=== PATIENT | female | born 1940 ===

== ENCOUNTER 2017-06-11 06:53 | Emergency (ER) | payer MEDICARE, OTHER ==
[~2017-06-11] VITALS: Ht 162.6 cm; Wt 68.2 kg
[2017-06-11 06:59] VITALS: BP 142/74; PULSE 78; RESP 10; O2SAT 94
--- NOTE | 2017-06-11 07:10 | ED.REPORT ---
HPI-Eye Problem Date of Service Jun 11, 2017 ED Provider: Sarbjit Duran MD The pt is a 76 y/o female w/ a hx of SVT presenting to the ED via EMS due to R eye pain. She reports waking up w/ the pain and R eyelid swelling, and denies any acute injury to the eye. The pt experiences pain w/ eye movement. Denies blurry vision, fevers, or nasal discharge. 50 mcg of Fentanyl was given by EMS. Nursing Notes Stated Complaint: EYE PAIN Chief Complaint: R eye pain Nursing Notes Reviewed: Yes Allergies: Coded Allergies: crab (Verified Allergy, Severe, anaphylaxis, 06/11/17) Scheduled Clindamycin (Clindamycin) 300 Mg Capsule 300 MG PO TID General Time Seen by MD: 07:08 Chief Complaint Other (R eye pain ) Hx Obtained From: Patient Arrived By: Ambulance Sudden in Onset?: Yes Onset Occurred: Just prior to arrival Symptom Duration: Since onset Recent Healthcare: No recent doctor visit, No recent hospitalization Similar Sx Previous: No Past Medical History Past Medical History SVT Past Surgical History None reported Smoking History Unknown if Ever Smoker Social History Other Social History: Good social support, Ambulatory Status Independent Review of Systems R eyelid swelling; R eye pain w/ movement; Denies nasal discharge; Constitutional: Denies: Fever Eyes: Denies: Blurred bilateral Complete sys rev & neg: except as marked. Physical Exam Initial Vital Signs Vital Signs (First) Date Time Temp Pulse Resp B/P Pulse Ox O2 Delivery O2 Flow Rate FiO2 06/11/17 06:59 36.4 78 10 142/74 94 Room Air Initial VS: Reviewed General / Const: Well-developed, Well-nourished ENT: Mucous membranes moist, Conjunctiva normal, No scleral icterus Neck: Supple, Non-tender, Full range of motion Respiratory: Breath sounds normal, Clear to auscultation, No respiratory distress Cardiovascular: Regular rate & rhythm, Heart sounds normal, Intact distal pulses Extremities: Vascular intact, Neuro intact, No swelling, No tenderness Neurologic: Alert, Oriented, Nonfocal Head / Eyes: Normocephalic R eyelid swelling; No proptosis; Interpretation & Diagnostics PROCEDURE: CT ORBITS WITH CONTRAST IMPRESSION: 1. Soft tissue swelling consistent with cellulitis over the right orbital area. No post septal edema changes. No intracranial abnormality is seen. 2. Prominence of the inferior aspect of the region or of the right lacrimal gland suggesting some inflammation of it. 3. Small amount of fluid versus mucosal thickening in the dependent portion of the right maxillary sinus. Dictated by: Jem Ayala M.D. on 06/11/2017 at 8:31 results called to ER clinician. Approved by: Jem Ayala M.D. on 06/11/2017 at 8:41 Lab Results Interpretation Result Diagram: 06/11/17 0711 06/11/17 0711 Test 06/11/17 07:11 White Blood Count 5.5th/mm3 (3.8-10.1) Red Blood Count 3.97mil/mm3 (3.90-5.20) Hemoglobin 11.5g/dL (12.0-15.6) Hematocrit 36.2% (35.0-46.0) Mean Corpuscular Volume 91.2fL (81-100) Mean Corpuscular Hemoglobin 29.0pg (27.0-35.0) Mean Corpuscular Hemoglobin Concent 31.8% (32.0-37.0) Red Cell Distribution Width 14.0% (12.3-15.4) Platelet Count 220bil/L (150-400) Neutrophils (%) (Auto) 42.9% (40-74) Lymphocytes (%) (Auto) 44.3% (14-46) Monocytes (%) (Auto) 7.6% (4-12) Eosinophils (%) (Auto) 4.5% (0-5) Basophils (%) (Auto) 0.5% (0-3) Hold Purple Top Tube Received (Received) Hold Blue Top Tube Received (Received) Sodium Level 147mEq/L (134-144) Potassium Level 4.5mEq/L (3.5-5.2) Chloride Level 110mEq/L (97-108) Carbon Dioxide Level 26mmol/L (18-29) Blood Urea Nitrogen 18mg/dL (8-27) Creatinine 0.85mg/dL (0.57-1.00) Estimat Glomerular Filtration Rate 93mL/min (>59) Glucose Level 89mg/dL (60-99) Calcium Level 8.7mg/dL (8.5-10.1) Total Bilirubin 0.2mg/dL (0.0-1.2) Aspartate Amino Transf (AST/SGOT) 23U/L (0-50) Alanine Aminotransferase (ALT/SGPT) 14U/L (0-32) Alkaline Phosphatase 66U/L (25-165) Total Protein 6.6g/dL (6.4-8.4) Albumin 3.9g/dL (3.4-5.0) Hold Hadley Top Tube Received (Received) Re-Eval/Medical Decision Med Decision/Clinical Course 76-year-old female with right eyelid swelling since this morning. CT of the orbit shows no evidence of orbital cellulitis. She appears to have a preseptal cellulitis. There is no evidence of corneal abrasion on fluorescein and extraocular movements are intact. She was given 1 dose of IV clindamycin and treated with oral clindamycin with plans to follow up with primary doctor in 1-2 days for reevaluation. Return precautions given. Source of Hx: Old records Re-Evaluation/Progress : Time of Eval: 10:03 Re-Evaluation/Progress Note: Pt rechecked. Informed pt of plan for treatment. Pt understands and agrees with plan for treatment. F/U instructions and RTER warnings given. All questions addressed. Counseled Regarding: Diagnosis, Lab results, Need for follow-up, When/why to return to ED Discharge & Departure Primary Impression: Preseptal cellulitis of right eye Disposition: Home Discharge Condition All VS Reviewed: Yes Condition: Stable Additional Instructions: Thank for you entrusting us with your care today. You were diagnosed with preseptal cellulitis of the right eye. Please take the antibiotics as counseled and follow up with your primary care providers in 1-2 days for a recheck. Please return to the emergency department if you develop any worsening redness, swelling, eye pain, pain with eye movement, inability to close your eye, double vision, visual loss, fevers, nausea, vomiting, no improvement in 48 hours, or any new or worsening symptoms. I hope you feel better soon. Referrals: Jennifer Dawsonibrishabh Attestation Portions of this note were transcribed by Zaheer Pandya. I, Dr. Duran personally performed the history, physical exam and medical decision-making; I reviewed and confirmed the accuracy of the information in the transcribed note. copies to: Jennifer Dawson Ben M MD Jun 11, 2017 07:10 Zaheer Pandya Jun 11, 2017 07:27
[2017-06-11] MEDS ORDERED: Tetracaine 0.5% 4 mL Ophthalmic Solution ONE (07:15)
[2017-06-11] MEDS ORDERED: Fluorescein 0.6 mg Ophthalmic Strip ONE (07:15)
[2017-06-11] MEDS ORDERED: oxyCODONE-Acetamin 10-325 mg Tablet PO ONE (07:30)
[2017-06-11 07:35] LABS: BASOPHILS % (AUTO) 0.5 % (0-3); EOSINOPHILS % (AUTO) 4.5 % (0-5); MONOCYTES % (AUTO) 7.6 % (4-12); Mean Corpuscular Volume 91.2 fL (81-100); NEUTROPHILS % (AUTO) 42.9 % (40-74); Platelet Count 220 bil/L (150-400)
--- NOTE | 2017-06-11 08:42 | DRSVH ---
PROCEDURE: CT ORBITS WITH CONTRAST ([id number]) INDICATIONS: r/o R orbital cellulitis TECHNIQUE: After the administration of intravenous contrast, 3.0 mm axial images acquired through the orbits, wi th coronal reformatting. For radiation dose reduction, the following was used: automated exposure c ontrol. COMPARISON: None. FINDINGS: Image quality: Excellent. Orbits: Globes are symmetrical. The optic nerves are normal in size and enhancement. No retrobulba r masses or fat abnormalities. The extra-ocular muscles are normal and symmetrical in appearance. O ptic chiasm is normal. Periorbital soft tissues are thickened over the right eye but no post septal edema is seen. The right lacrimal gland is slightly prominent in size and enhancement inferiorly comp ared to the left. Intracranial: The pituitary gland is normal, without sellar or suprasellar masses. Visualized cereb ral hemispheres, brainstem, and spinal cord appear normal. Bones and sinuses: Visualized calvarium and facial bones appear intact. Visualized sinuses and mast oids are clear. IMPRESSION: 1. Soft tissue swelling consistent with cellulitis over the right orbital area. No post septal edema changes. No intracranial abnormality is seen. 2. Prominence of the inferior aspect of the region or of the right lacrimal gland suggesting some inf lammation of it. 3. Small amount of fluid versus mucosal thickening in the dependent portion of the right maxillary si nus. Dictated by: Jem Ayaal M.D. on 06/11/2017 at 8:31 results called to ER clinician. Approved by: Jem Ayala M.D. on 06/11/2017 at 8:41
[2017-06-11] MEDS ORDERED: Clindamycin Inj 600 MG in IV Premix 1 EACH IV ONE (08:50)
[2017-06-11] MEDS ORDERED: CLIN-78 PO (09:08)
[2017-06-11 10:25] VITALS: BP 112/74; PULSE 63; RESP 14; O2SAT 97
== END 2017-06-11 10:29 | disposition home or self-care (01) ==
LOC: SED 06:53
DX: L03.213 Periorbital cellulitis (principal); Z91.013 Allergy to seafood
CPT/HCPCS: 36415; 70481; 80053; 85025; 96365; 99284; Q9967